=== PATIENT | male | born 2000 ===

== ENCOUNTER 2023-09-16 13:39 | Emergency (ER) | payer MEDICAID ==
[~2023-09-16] VITALS: Ht 172.7 cm; Wt 78.0 kg
[2023-09-16 13:44] VITALS: TEMP 98.2; O2SAT 99
[2023-09-16 14:58] LABS: BASOPHILS % 0.2 % (0.0-2.0); EOSINOPHILS % 0.6 % (0.0-5.0); HEMATOCRIT. 44.7 % (42.0-52.0); HEMOGLOBIN. 15.3 g/dL (14.0-18.0); LYMPHOCYTES % 10.4 % (20.0-50.0); MEAN CORPUSCULAR HEMOGLOBIN 32.2 pg (28.0-32.0); MEAN CORPUSCULAR HGB CONC 34.2 g/dL (31.0-37.0); MEAN CORPUSCULAR VOLUME 94.4 fL (80.0-94.0); MEAN PLATELET VOLUME 8.7 fl (7.4-10.4); MONOCYTES % 11.9 % (2.0-8.0); NEUTROPHILS % 76.9 % (40.0-76.0); PLATELET 275 x1000/uL (130-400); RED BLOOD CELL COUNT 4.74 mill/uL (4.7-6.1); RED CELL DISTRIBUTION WIDTH 13.3 % (11.6-14.6)
[2023-09-16 14:59] LABS: CHLORIDE 102 mEq/L (98-107); POTASSIUM 3.6 mEq/L (3.5-5.1); SODIUM 139 mEq/L (136-145)
[2023-09-16 15:00] LABS: CALCIUM 9.1 mg/dL (8.7-10.4); CARBON DIOXIDE 32 mEq/L (21-32)
[2023-09-16 15:05] LABS: GLUCOSE 94 mg/dL (70-105); UREA NITROGEN BLOOD 12 mg/dL (9-23)
[2023-09-16 15:07] LABS: ALANINE AMINOTRANSFERASE 49 IU/L (10-49); ALBUMIN 4.7 g/dL (3.2-4.8); ASPARTATE AMINOTRANSFERASE 24 IU/L (<34); BILIRUBIN TOTAL 0.5 mg/dL (0.1-1.0); PROTEIN TOTAL 7.5 g/dL (6.0-8.3)
[2023-09-16 15:16] LABS: CREATININE 1.1 mg/dL (0.6-1.3)
[2023-09-16] MEDS: KETOROLAC 30MG/ML VIAL IM STA (15:26)
[2023-09-16] MEDS: ONDANSETRON 4MG ODT PO STA (15:26)
[2023-09-16] MEDS: TETANUS, DIPHTHERIA, PERTUSSIS VAC/PF 0.5ML (>10YR OLD) IM ONE (15:26)
[2023-09-16] MEDS: LIDOCAINE HCL/PF 1% 10 MG/ML 5ML VIAL INFIL ONE (16:11)
[2023-09-16] MEDS: BACITRACIN ZINC OINT UDPKT TOP ONE (16:11)
[2023-09-16] MEDS ORDERED: CEPH500T MT (16:11)
[2023-09-16 16:33] VITALS: BP 132/85; PULSE 72; RESP 16
== END 2023-09-16 16:40 | disposition home or self-care (01) ==
LOC: ER 13:39
DX: L02.412 Cutaneous abscess of left axilla (principal)
CPT/HCPCS: 80053; 85025; 36415; 90715; 10060; 90471; 96372; 99284; Q0162; J1885; J3490; Z7610